=== PATIENT | female | born 1980 | race African-American/Black ===

== ENCOUNTER 2019-09-17 18:19 | Emergency (ER) | payer OTHER ==
--- NOTE | 2019-09-17 18:44 | ER Document Report ---
ED Medical Screen (RME) - General Chief Complaint: Flank Pain Stated Complaint: BACK PAIN Time Seen by Provider: 09/17/19 18:36 Primary Care Provider: ARIEL LEYVA DO [Primary Care Provider] - Follow up as needed Mode of Arrival: Ambulatory Information source: Patient Notes: 38-year-old female presented to ED for complaint of right flank pain times a month. She states it is starting to get worse. She is alert oriented respirations regular and unlabored speaking in full sentences. She states she has a history of a stroke in 2016 so she has some memory loss. She does not have menstrual cycles because she has had a hysterectomy. She does have a history of cholesterol high blood pressure migraines diabetes type 2 and reflux. She has a history of a surgery for screws and fixation on her left ankle. Patient denies any nausea or vomiting. Patient's blood pressure is very high at this time. She is on multiple high blood pressure medicines. She did have a stroke in 2016. I have greeted and performed a rapid initial assessment of this patient. A comprehensive ED assessment and evaluation of the patient, analysis of test results and completion of medical decision making process will be conducted by an additional ED providers. TRAVEL OUTSIDE OF THE [place] IN LAST 30 DAYS: No - Related Data Allergies/Adverse Reactions: aspirin Allergy (Severe, Verified 09/17/19 18:36) Throat itching latex Allergy (Severe, Verified 09/17/19 18:38) Swelling of Throat Past Medical History - Past Medical History Cardiac Medical History: Reports: Hx Hypertension Endocrine Medical History: Denies: Hx Diabetes Mellitus Type 2 - borderline DM Past Surgical History: Reports: Hx Gynecologic Surgery - hysterectomy Physical Exam - Vital signs Vitals: Temp Pulse Resp BP Pulse Ox 98.4 F 89 20 163/127 H 99 09/17/19 18:24 09/17/19 18:24 09/17/19 18:24 09/17/19 18:24 09/17/19 18:24 Course - Vital Signs Vital signs: Temp Pulse Resp BP Pulse Ox 98.4 F 89 20 163/127 H 99 09/17/19 18:24 09/17/19 18:24 09/17/19 18:24 09/17/19 18:24 09/17/19 18:24 Doctor's Discharge - Discharge Referrals: GORDON,ARIEL HARISH, DO [Primary Care Provider] - Follow up as needed
--- NOTE | 2019-09-17 19:31 | RADIOLOGY REPORT (SQ) ---
EXAM DESCRIPTION: CT ABD/PELVIS NO ORAL OR IV IMAGES COMPLETED DATE/TIME: 09/17/2019 7:19 pm REASON FOR STUDY: Right flank pain COMPARISON: None. TECHNIQUE: CT scan of the abdomen and pelvis performed without intravenous or oral contrast. Images reviewed with lung, soft tissue, and bone windows. Reconstructed coronal and sagittal MPR images revi ewed. All images stored on PACS. All CT scanners at this facility use dose modulation, iterative reconstruction, and/or weight based d osing when appropriate to reduce radiation dose to as low as reasonably achievable (ALARA). [facility]: Dose Right [facility]: CareDose [facility]: Dose Right [facility]: Teradose 4D [facility]: Smart Easiest Credit Card To Get Approved For RADIATION DOSE: CT Rad equipment meets quality standard of care and radiation dose reduction techniq ues were employed. CTDIvol: 19.2 mGy. DLP: 1017 mGy-cm.mGy. LIMITATIONS: None. FINDINGS: LOWER CHEST: No significant findings. No nodules or infiltrates. NON-CONTRASTED LIVER, SPLEEN, ADRENALS: Evaluation limited by lack of IV contrast. No identified sign ificant masses. PANCREAS: No masses. No peripancreatic inflammatory changes. GALLBLADDER: No identified stones by CT criteria. No inflammatory changes to suggest cholecystitis. RIGHT KIDNEY AND URETER: No suspicious masses. Assessment limited by lack of IV contrast. Cannot ex clude a pinpoint calculus at the right UVJ. No hydronephrosis or hydroureter. LEFT KIDNEY AND URETER: No suspicious masses. Assessment limited by lack of IV contrast. No signifi cant calcifications. No hydronephrosis or hydroureter. AORTA AND RETROPERITONEUM: No aneurysm. No retroperitoneal masses or adenopathy. BOWEL AND PERITONEAL CAVITY: No obvious mass. Mild sigmoid diverticulosis with no associated inflamm ation. APPENDIX: Normal. PELVIS, BLADDER, AND ABDOMINAL WALL:No abnormal masses. No free fluid. Bladder normal. Ventral herni a contains only fat. BONES: No significant findings. OTHER: No other significant finding. IMPRESSION: Cannot exclude a pinpoint calculus at the right UVJ. Mild sigmoid diverticulosis. Vent ral hernia containing only fat. No other significant findings. COMMENT: Quality ID # [id number]: Final reports with documentation of one or more dose reduction techniques (e.g., Automated exposure control, adjustment of the mA and/or kV according to patient size, use of iterative reconstruction technique) TECHNICAL DOCUMENTATION: JOB ID: [id number] 2010 [employer]- All Rights Reserved Reading location - IP/workstation name: [email or web address]
--- NOTE | 2019-09-17 19:33 | RADIOLOGY REPORT (SQ) ---
EXAM DESCRIPTION: CHEST 2 VIEWS IMAGES COMPLETED DATE/TIME: 09/17/2019 7:23 pm REASON FOR STUDY: hx of stroke BP 156/124 COMPARISON: None. EXAM PARAMETERS: NUMBER OF VIEWS: two views TECHNIQUE: Digital Frontal and Lateral radiographic views of the chest acquired. RADIATION DOSE: NA LIMITATIONS: none FINDINGS: LUNGS AND PLEURA: There appears to be some bony overgrowth at the anterior margin of the r ight 2nd rib. Pulmonary vascular congestion but no pulmonary edema. No infiltrate or effusion. MEDIASTINUM AND HILAR STRUCTURES: No masses or contour abnormalities. HEART AND VASCULAR STRUCTURES: Heart size is borderline. BONES: No acute findings. HARDWARE: None in the chest. OTHER: No other significant finding. IMPRESSION: Borderline cardiomegaly without pulmonary edema. Findings as described. TECHNICAL DOCUMENTATION: JOB ID: [id number] 2010 [employer]- All Rights Reserved Reading location - IP/workstation name: [email or web address]
--- NOTE | 2019-09-17 19:37 | EKG REPORT ---
SEVERITY:- ABNORMAL ECG - SINUS OR ECTOPIC ATRIAL RHYTHM NONSPECIFIC INTRAVENTRICULAR CONDUCTION DELAY LEFT VENTRICULAR HYPERTROPHY : Confirmed by: Gsutabo Schuster MD 17-Sep-2019 19:36:35
[2019-09-17 20:14] LABS: ABSOLUTE EOSINOPHILS # (AUTO) 0.1 10^3/uL (0.0-0.6); ABSOLUTE LYMPHOCYTES (AUTO) 1.8 10^3/uL (0.5-4.7); ABSOLUTE MONOCYTES (AUTO) 0.4 10^3/uL (0.1-1.4); ABSOLUTE NEUT (AUTO) 3.3 10^3/uL (1.7-8.2); BASOPHILS % (AUTO) 0.6 % (0-2); EOSINOPHILS % (AUTO) 1.5 % (0-6); HEMATOCRIT 38.4 % (36.0-47.0); HEMOGLOBIN 12.6 g/dL (12.0-15.5); LYMPHOCYTES % (AUTO) 32.2 % (13-45); MEAN CORPUSCULAR HGB CONC 32.8 g/dL (32.0-36.0); MEAN CORPUSCULAR VOLUME 76 fl (80-97); MONOCYTES % (AUTO) 7.4 % (3-13); PLATELET COUNT 305 10^3/uL (150-450); RED BLOOD COUNT 5.04 10^6/uL (3.72-5.28); RED CELL DISTRIBUTION WIDTH 14.8 % (11.5-14.0); SEGMENTED NEUTROPHILS % (AUTO) 58.3 % (42-78); TOTAL CELLS COUNTED % (AUTO) 100 %; WHITE BLOOD COUNT 5.6 10^3/uL (4.0-10.5)
[2019-09-17] MEDS ORDERED: METHOCARBAMOL INJ/PF 1000 MG/10 ML SDV IV ONE (20:16)
[2019-09-17 20:21] LABS: INTERNATIONAL RATION (INR) 1.11; PROTHROMBIN TIME 14.4 SEC (11.4-15.4)
[2019-09-17 20:22] LABS: PARTIAL THROMBOPLASTIN TIME 31.8 SEC (23.5-35.8)
--- NOTE | 2019-09-17 20:26 | ER Document Report ---
ED General - General Chief Complaint: Flank Pain Stated Complaint: BACK PAIN Time Seen by Provider: 09/17/19 18:36 Primary Care Provider: ARIEL LEYVA DO [NO LOCAL MD] - Follow up as needed Mode of Arrival: Ambulatory Information source: Patient Notes: -38 year-old woman who presents to the emergency department with a complaint of back pain. States she has been having pain in her mid back area and right flank area with pain radiating to the middle of her back. She denies incontinence of bowel or bladder, she denies lower extremity numbness or weakness. Patient denies a history of trauma, however she has had a CVA which involves the right brain with left-sided weakness and uses a cane. States that she has been using Tylenol for pain notes that she is allergic to aspirin. TRAVEL OUTSIDE OF THE [place] IN LAST 30 DAYS: No - Related Data Allergies/Adverse Reactions: aspirin Allergy (Severe, Verified 09/17/19 18:36) Throat itching latex Allergy (Severe, Verified 09/17/19 18:38) Swelling of Throat Home Medications: amlodipine, metformin, lisinopril, topiramate, clonidine, atorvastatin, rantinidine. pt has list in purse Past Medical History - General Information source: Patient - Social History Smoking Status: Never Smoker Chew tobacco use (# tins/day): No Frequency of alcohol use: Rare Drug Abuse: None Family History: Reviewed & Not Pertinent Patient has homicidal ideation: No - Past Medical History Cardiac Medical History: Reports: Hx Hypertension Endocrine Medical History: Denies: Hx Diabetes Mellitus Type 2 - borderline DM Past Surgical History: Reports: Hx Gynecologic Surgery - hysterectomy Review of Systems - Review of Systems Notes: Constitutional: Negative for fever. HENT: Negative for sore throat. Eyes: Negative for visual changes. Cardiovascular: Negative for chest pain. Respiratory: Negative for shortness of breath. Gastrointestinal: Negative for abdominal pain, vomiting or diarrhea. Genitourinary: Negative for dysuria. Musculoskeletal: +back pain. Skin: Negative for rash. Neurological: Negative for headaches, weakness or numbness. 10 point ROS negative except as marked above and in HPI. Physical Exam - Vital signs Vitals: Temp Pulse Resp BP Pulse Ox 98.4 F 89 20 163/127 H 99 09/17/19 18:24 09/17/19 18:24 09/17/19 18:24 09/17/19 18:24 09/17/19 18:24 - Notes Notes: PHYSICAL EXAMINATION: Physical Exam: General: Well-nourished well-developed overweight 38-year-old woman in mild distress secondary to back pain. HEENT: NC/AT, pupils equal round and reactive to light, MM moist,nares clear, o ropharynx clear, airway patent Neck: supple, no adenopathy, no masses. Good range of motion Lungs: clear, no wheezing, no rales no rhonchi CVS: Regular rate and rhythm no murmur gallop or rub Abdomen: Soft, active, nontender, no masses, no hepatosplenomegaly Back: Tenderness in the right paraspinous lumbar muscle group, Ext: No edema, clubbing or cyanosis. Neuro: Alert and responsive, moving all 4 extremities on command, cranial nerves intact, no focal findings Skin: Intact no open lesions, no rash Course - Re-evaluation Re-evalutation: 09/17/19 20:19 Patient an IV dose of Robaxin for pain, she will be discharged home with a few tablets for pain and a muscle relaxant. I discussed this plan with the patient given that she is driving with will not have to hold her in the emergency department for an extended period. She is in agreement with that plan. 09/17/19 03:17 This was noted to have elevated blood pressure at the time of discharge. She is not taking her evening medications. Dose of clonidine .2 mg, lisinopril 10 mg and Nitro paste applied to the chest wall. We will await a downward trend of blood pressure, patient then resume your medications at home. Patient is asymptomatic. - Vital Signs Vital signs: Temp Pulse Resp BP Pulse Ox 98.4 F 89 22 H 185/122 H 98 09/17/19 18:41 09/17/19 18:24 09/17/19 21:00 09/17/19 23:16 09/17/19 22:21 - Laboratory Result Diagrams: 09/17/19 20:00 09/17/19 20:00 Laboratory results interpreted by me: 09/17/19 09/17/19 20:00 20:00 MCV 76 L MCH 25.0 L RDW 14.8 H Creatinine 1.37 H Est GFR ( Amer) 52 L Est GFR (MDRD) Non-Af 43 L Glucose 116 H 09/17/19 20:20 I have reviewed laboratory data and used this information for the treatment decisions regarding the patient. - Diagnostic Test Radiology reviewed: Image reviewed, Reports reviewed - Chest x-ray: Cardiomegaly, no pulmonary edema. CT scan noncontrast: Abdomen and pelvis: Patient noted to have mild diverticulosis and a ventral hernia containing fat. There is a question of a tiny stone at the right UVJ. - EKG Interpretation by Me EKG shows normal: Sinus rhythm - Sinus rhythm rate of 71, nonspecific IVCD, LVH, no acute ST or T wave abnormalities. Discharge - Discharge Clinical Impression: Spasm of lumbar paraspinous muscle, Myofascial pain on right side, Hypertension Back pain Qualifiers: Back pain location: low back pain Chronicity: acute Back pain laterality: right Sciatica presence: without sciatica Qualified Code(s): M54.5 - Low back pain Condition: Good Disposition: HOME, SELF-CARE Instructions: Low Back Pain ([facility]) Additional Instructions: You were seen in emergency department tonight and diagnosed with lower back pain and muscle spasm. You are given a muscle relaxant to take at home as well as medication is used for pain. Suggest that you try using a cold compress to the area of pain and also follow-up with your primary care doctor for long-term management and plans. If your symptoms are worsening or if you have any other concerns she return to emergency department for further evaluation and treatment HOME CARE INSTRUCTIONS & INFORMATION: Thank you for choosing us for your medical needs. We hope you're satisfied with the care you received. After you leave, you must properly care for your problem and, at the same time, observe its progress. Any condition can change. Some illnesses can change rapidly over hours or days. If your condition worsens, return to the Emergency Department or see your physician promptly. ABOUT YOUR X-RAYS AND EKG'S: If you had an EKG or X-rays taken, they have been read by the Emergency Physician. The X-rays and EKG's will also be read by a Radiologist or Digital Advertising Specialist within 24 hours. If discrepancies are noted, you will be notified by telephone. Please be certain the ED has a correct telephone number & address where you can be reached. Also, realize that some fractures or abnormalities do not show up on initial X-rays. If your symptoms continue, see your physician. ABOUT YOUR LABORATORY TEST: If you had laboratory tests, the results have been reviewed by the Emergency Physician. Some test results (for example cultures) may not be available for several days. You will be contacted if any test result shows you need additional treatment. Please be certain the ED has a correct telephone number and address where you can be reached. ABOUT YOUR MEDICATIONS: You will receive instructions on how to take your medicine on the prescription label you receive. Additional information may be provided by the Pharmacy. If you have questions afterwards, call the ED for clarification or further instructions. Some prescribed medications may cause drowsiness. Do not perform tasks such as driving a car or operating machinery without consulting your Pharmacist. If you feel you need a refill of pain medication, your condition will need re-evaluation. Please do not call for a refill of any medication. ABOUT YOUR SIGNATURE: Signature of this document acknowledges to followin. Understanding that you received emergency treatment and that you may be released before al medical problems are known or treated. Please be certain the ED has a correct phone number & address where you can be reached. 2. Acknowledgement that you will arrange for follow-up care as recommended. 3. Authorization for the Emergency Physician to provide information to your follow-up Physician in order to maximize your care. AT ANY TIME, IF YOUR SYMPTOMS CHANGE SIGNIFICANTLY OR WORSEN OR YOU DEVELOP NEW SYMPTOMS, RETURN TO THE EMERGENCY DEPARTMENT IMMEDIATELY FOR RE-EVALUATION. OUR GOAL IS TO PROVIDE EXCELLENT MEDICAL CARE! WE HOPE THAT WE HAVE MET YOUR EXPECTATIONS DURING YOUR EMERGENCY DEPARTMENT VISIT AND THAT YOU FEEL YOU HAVE RECEIVED EXCELLENT CARE! Prescriptions: Baclofen [Baclofen 10 mg Tablet] 10 mg PO TID #30 tab Referrals: ARIEL LEYVA DO [NO LOCAL MD] - Follow up as needed
[2019-09-17 20:33] LABS: ALBUMIN 3.6 g/dL (3.5-5.0); ALKALINE PHOSPHATASE 96 U/L (38-126); ANION GAP 6 (5-19); ASPARTATE AMINO TRANSFERASE 22 U/L (14-36); BILIRUBIN,TOTAL 0.4 mg/dL (0.2-1.3); BLOOD UREA NITROGEN 19 mg/dL (7-20); CALCIUM 8.8 mg/dL (8.4-10.2); CARBON DIOXIDE 28 mmol/L (22-30); CHLORIDE 103 mmol/L (98-107); GLUCOSE 116 mg/dL (75-110); POTASSIUM 4.3 mmol/L (3.6-5.0)
[2019-09-17 20:42] LABS: APPEARANCE,URINE CLEAR; BILIRUBIN,URINE NEGATIVE (NEGATIVE); COLOR,URINE COLORLESS; GLUCOSE, URINE NEGATIVE (NEGATIVE); KETONES,URINE NEGATIVE (NEGATIVE); LEUKOCYTE ESTERASE,URINE NEGATIVE (NEGATIVE); NITRITE,URINE NEGATIVE (NEGATIVE); PROTEIN,URINE NEGATIVE (NEGATIVE); URINE SPECIFIC GRAVITY 1.008; UROBILINOGEN,URINE NEGATIVE mg/dL (<2.0)
[2019-09-17] MEDS: HYDROCODONE/ACETAMINOPHEN 5-325 MG (6 TAB/ER DISP) PO PRN ×2 (21:24→21:49)
[2019-09-17] MEDS ORDERED: CLONIDINE HCL 0.2 MG TABLET PO ONE (21:46)
[2019-09-17] MEDS ORDERED: NITROGLYCERIN 2% OINTMENT 1 GM PACKET TP ONE (21:47)
[2019-09-17] MEDS ORDERED: LISINOPRIL 10 MG TABLET PO ONE (21:47)
[2019-09-17] MEDS ORDERED: HYDRALAZINE HCL INJ/PF 20 MG/1 ML SDV IV ONE (22:48)
[2019-09-17 23:25] VITALS: BP 185/122
== END 2019-09-17 23:26 | disposition home or self-care (01) ==
LOC: ER 18:19
DX: M62.830 Muscle spasm of back (principal); M54.5 Low back pain; I10 Essential (primary) hypertension; R10.9 Unspecified abdominal pain; Z88.6 Allergy status to analgesic agent; Z91.040 Latex allergy status; Z90.710 Acquired absence of both cervix and uterus
CPT/HCPCS: 93005; 99284; 96375; 96365; 36415; 85025; 85610; 85730; 80053; 81001; 71046; 74176; 93010; J0360; J2800